=== PATIENT | female | born 1990 | race American Indian/Alaskan Native ===

== ENCOUNTER 2018-04-07 08:15 | Emergency (ER) | payer OTHER, MEDICAID ==
[2018-04-07] MEDS ORDERED: IBUPROFEN PO ONE (10:32)
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
--- NOTE | 2018-04-07 11:57 | XRay Report ---
AP PELVIS: HISTORY: pain. AP view of the pelvis shows normal pelvic contour and soft tissues. The hips are symmetric and within normal limits as are the sacroiliac joints. IMPRESSION: Normal pelvis.
--- NOTE | 2018-04-07 11:57 | XRay Report ---
CERVICAL SPINE, 3 views: History: Neck pain. Findings: The vertebral bodies, disk spaces, posterior elements and prevertebral soft tissues are unremarkable. The dens is intact. No acute fracture or malalignment is identified. Impression: 1. No evidence for acute injury to the cervical spine.
--- NOTE | 2018-04-07 11:58 | XRay Report ---
LUMBOSACRAL SPINE, 3 VIEWS: History: Back pain Findings: The vertebral bodies, disk spaces and posterior elements are intact. No compression deformity or malalignment. The SI joints are symmetric and unremarkable. Impression: 1. No evidence for acute injury to the lumbar spine.
--- NOTE | 2018-04-07 11:59 | XRay Report ---
ROUTINE CHEST, TWO VIEWS: HISTORY: chest pain. The trachea, heart, mediastinal contour, lung contreras and bony thorax are unremarkable. IMPRESSION: Unremarkable chest x-ray.
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
[2018-04-07 12:57] VITALS: BP 111/42
== END 2018-04-07 12:42 | disposition home or self-care (01) ==
LOC: ED 08:15
DX: M54.2 Cervicalgia (principal); M54.89 Other dorsalgia; M25.562 Pain in left knee; R07.89 Other chest pain; M25.551 Pain in right hip; M25.552 Pain in left hip; V89.2XXA Person injured in unspecified motor-vehicle accident, traffic, initial encounter; Y93.89 Activity, other specified; Y99.8 Other external cause status; Y92.410 Unspecified street and highway as the place of occurrence of the external cause
CPT/HCPCS: 71046; 72040; 72070; 72100; 72170; 99283

== ENCOUNTER 2019-10-18 02:23 | Outpatient (CLI) | payer MEDICAID ==
[2019-10-18 02:40] VITALS: BP 134/67
[2019-10-18] MEDS ORDERED: LACTATED RINGERS 1,000 ML IV ONE (02:48)
[2019-10-18] MEDS ORDERED: TERBUTALINE 1 MG/1 ML INJ SUB-Q ONE (03:31)
[2019-10-18] MEDS ORDERED: TERBUTALINE 1 MG/1 ML INJ ONE (03:34)
== END 2019-10-18 05:15 | disposition home or self-care (01) ==
LOC: TRG 02:23 → APU 02:50 → TRG 05:15
PROVIDERS: ATTEND Obstetrics & Gynecology
DX: O62.9 Abnormality of forces of labor, unspecified (principal); Z3A.39 39 weeks gestation of pregnancy
CPT/HCPCS: 59025; 96360; 96372; J3105; J7120; 96361

== ENCOUNTER 2019-10-20 16:47 | Outpatient (CLI) | payer MEDICAID ==
[2019-10-20] MEDS ORDERED: ACETAMINOPHEN W/CODEINE 300-30 MG TAB PO ONE (20:29)
[2019-10-20] MEDS ORDERED: hydrOXYzine PAMOATE 25 MG CAP PO ONE (20:29)
[2019-10-20 20:32] VITALS: BP 122/58
== END 2019-10-20 23:40 | disposition home or self-care (01) ==
LOC: TRG 16:47 → APU 18:45 → TRG 23:40
PROVIDERS: ATTEND Obstetrics & Gynecology
DX: O47.1 False labor at or after 37 completed weeks of gestation (principal); Z3A.39 39 weeks gestation of pregnancy
CPT/HCPCS: 59025; Q0177

== ENCOUNTER 2019-10-22 05:48 | Inpatient (IN) | payer MEDICAID ==
[2019-10-22] MEDS ORDERED: BICITRA ORAL LIQD 30ML PO ONE (06:58)
[2019-10-22] MEDS ORDERED: METOCLOPRAMIDE 10 MG/2 ML INJ IV ONE (06:58)
[2019-10-22] MEDS ORDERED: FAMOTIDINE 20 MG/2 ML INJ IV ONE (06:58)
[2019-10-22] MEDS ORDERED: OXYTOCIN 20 UNIT/1000ML DRIP 20 UNITS/1,000 ML BAG IV SCH ×2 (07:00→10:00)
[2019-10-22 07:58] LABS: Basophils % (Auto) 0.3 % (0.0-1.8); Hematocrit 33.3 % (30.3-42.9); Hemoglobin 11.8 gm/dl (10.1-14.3); Lymphocytes # (Auto) 1.2 K/mm3 (1.2-5.4); Lymphocytes % (Auto) 11.5 % (13.4-35.0); Mean Corpuscular HGB Conc 36 % (30-34); Mean Corpuscular Volume 89 fl (79-97); Monocytes # (Auto) 0.6 K/mm3 (0.0-0.8); Monocytes % (Auto) 5.5 % (0.0-7.3); Platelet Count 255 K/mm3 (140-440); Red Blood Count 3.75 M/mm3 (3.65-5.03); Red Cell Distribution Width 13.2 % (13.2-15.2)
[2019-10-22] MEDS: LACTATED RINGERS 1,000 ML IV SCH ×2 (07:59→09:31)
[2019-10-22] MEDS ORDERED: ceFAZolin/Water 2 GM/20 ML 2 GM/20 ML SYRINGE IV ONE (08:04)
[2019-10-22] MEDS ORDERED: fentaNYL 100 MCG/2 ML INJ IV PRN (08:11)
--- NOTE | 2019-10-22 09:16 | Anesthesia Day of Surgery ---
Anesthesia Day of Surgery - Day of Surgery Patient Examined: Yes Patient H&P Reviewed: Yes Patient is NPO: Yes Beta Blockers: No Cardiac Clearance: No Pulmonary Clearance: No Femi's Test: N/A
--- NOTE | 2019-10-22 09:21 | Anesthesia Consultation ---
Anesthesia Consult and Med Hx Date of service: 10/22/19 - Airway Anesthetic Teeth Evaluation: Good ROM Head & Neck: Adequate Mental/Hyoid Distance: Adequate Mallampati Class: Class III Intubation Access Assessment: Probably Good - Pulmonary Exam CTA: Yes - Cardiac Exam Cardiac Exam: RRR - Pre-Operative Health Status ASA Pre-Surgery Classification: ASA3 Proposed Anesthetic Plan: Spinal - Pre-Anesthesia Comment Pre-Anesthesia Comments: csection, no problem - Pulmonary Hx Smoking: No Hx Asthma: No Hx Respiratory Symptoms: No SOB: No COPD: No Home Oxygen Therapy: No Hx Pneumonia: No Hx Sleep Apnea: No - Cardiovascular System Hx Hypertension: No Hx Coronary Artery Disease: No Hx Heart Attack/AMI: No Hx Angina: No Hx Percutaneous Transluminal Coronary Angioplasty (PTCA): No Hx Cardia Arrhythmia: No Hx Pacemaker: No Hx Internal Defibrillator: No Hx Valvular Heart Disease: No Hx Heart Murmur: No Hx Peripheral Vascular Disease: No - Central Nervous System Hx Neuromuscular Disorder: No Hx Seizures: No CVA: No Hx Back Pain: No Hx Psychiatric Problems: No - Gastrointestinal Hx Ulcer: No Hx Gastroesophageal Reflux Disease: No - Endocrine Hx Renal Disease: No Hx End Stage Renal Disease: No Hx Cirrhosis: No Hx Liver Disease: No Hx Insulin Dependent Diabetes: No Hx Non-Insulin Dependent Diabetes: No Hx Thyroid Disease: No Hx Hypothyroidism: No Hx Hyperthyroidism: No - Hematic Hx Anemia: No Hx Sickle Cell Disease: Yes (TRAIT) - Other Systems Hx Alcohol Use: Yes (OCCASIONALLY) Hx Substance Use: No Hx Cancer: No Hx Obesity: Yes
[2019-10-22] MEDS ORDERED: HYDROmorphone 1 MG/1 ML INJ IV PRN (09:26)
[2019-10-22] MEDS ORDERED: ONDANSETRON 4 MG/2 ML INJ IV PRN (09:26)
[2019-10-22] MEDS ORDERED: NALOXONE 0.4 MG/1 ML INJ IV PRN ×2 (09:26→09:59)
[2019-10-22] MEDS ORDERED: DEXMEDETOMIDINE 200 MCG/2 ML VIAL IV ONE (09:35)
--- NOTE | 2019-10-22 09:55 | History and Physical Report ---
History of Present Illness Date of examination: 10/22/19 Date of admission: 10/22/19 05:49 Chief complaint: contractions History of present illness: 28y/o @ 39+4 weeks presents with regular contractions. The patient has a history of a prior delivery. She desires to attempt a trial of labor but has not had any further cervical change beyond 3cm. She denies leakage of fluid or vaginal bleeding Past History Past Medical History: no pertinent history Past Surgical History: section Social history: single - Obstetrical History Expected Date of Delivery: 10/25/19 Actual Gestation: 39 Week(s) 4 Day(s) : 2 Para: 1 Hx # Term Pregnancies: 1 Number of Pregnancies: 0 Spontaneous Abortions: 0 Induced : 0 Number of Living Children: 1 Medications and Allergies Allergies Allergy/AdvReac Type Severity Reaction Status Date / Time No Known Allergies Allergy Verified 10/18/19 02:52 Home Medications Medication Instructions Recorded Confirmed Last Taken Type HYDROcodone/APAP 5-325 [[place] 1 each PO Q6HR PRN #15 tablet 04/07/18 Unknown Rx 5/325] Ibuprofen [Motrin] 600 mg PO Q8H PRN #20 tablet 04/07/18 Unknown Rx methOCARBAMOL [Robaxin TAB] 500 mg PO Q6H PRN #15 tablet 04/07/18 Unknown Rx Active Meds: Active Medications Fentanyl (Sublimaze) 100 mcg IV Q2H PRN PRN Reason: Pain,Severe (7-10) LABOR PAIN Last Admin: 10/22/19 08:48 Dose: 100 mcg Documented by: Hydromorphone HCl (Dilaudid) 0.5 mg IV Q5M PRN PRN Reason: BREAK Stop: 10/24/19 09:25 Oxytocin/Sodium Chloride (Pitocin/Ns 20 Unit/1000ml Drip) 20 units in 1,000 mls @ 0 mls/hr IV TITR SMITHA Lactated Ringer's (Lactated Ringers) 1,000 mls @ 2,250 mls/hr IV PREOP SMITHA Stop: 10/23/19 07:27 Last Admin: 10/22/19 09:31 Dose: 2,250 mls/hr Documented by: Naloxone HCl (Naloxone) 0.2 mg IV Q2MIN PRN PRN Reason: Res Rate </= 8 or 02 SAT < 92% Ondansetron HCl (Zofran) 4 mg IV Q8H PRN PRN Reason: Nausea And Vomiting Sodium Chloride (Sodium Chloride Flush Syringe 10 Ml) 10 ml IV PRN NR Stop: 10/24/19 09:59 Review of Systems All systems: negative Genitourinary: contractions - Vital Signs Vital signs: Vital Signs Pulse Pulse Ox 87 100 10/22/19 06:11 10/22/19 06:11 Temp Pulse Resp BP Pulse Ox 98.6 F 70 18 122/65 99 10/22/19 06:16 10/22/19 07:41 10/22/19 08:48 10/22/19 06:16 10/22/19 07:41 - Physical Exam Breasts: Positive: deferred Cardiovascular: Regular rate Abdomen: Positive: normal appearance Results Result Diagrams: 10/22/19 07:40 Abnormal lab results 10/22/19 Range/Units 07:40 MCHC 36 H (30-34) % Lymph % (Auto) 11.5 L (13.4-35.0) % Seg Neutrophils % 82.7 H (40.0-70.0) % Seg Neutrophils # 8.9 H (1.8-7.7) K/mm3 All other labs normal. Assessment and Plan - Patient Problems (1) Previous section Current Visit: Yes Status: Acute Plan to address problem: will proceed with repeat delivery
[2019-10-22] MEDS ORDERED: IBUPROFEN 800 MG TAB PO PRN (09:59)
[2019-10-22] MEDS ORDERED: MORPHINE 4 MG/1 ML INJ IV PRN (09:59)
[2019-10-22] MEDS ORDERED: ACETAMINOPHEN 325 MG TAB PO PRN (09:59)
[2019-10-22] MEDS ORDERED: MAGNESIUM HYDROXIDE (MOM) ORAL LIQD UDC PO PRN (09:59)
[2019-10-22] MEDS ORDERED: LANOLIN/ZINC/DIMETHICONE (LANSINOH) 7 GM TP PRN (09:59)
[2019-10-22] MEDS ORDERED: WITCH HAZEL/ GLYCERIN PAD TP PRN (09:59)
[2019-10-22] MEDS ORDERED: ceFAZolin/STERILE WATER 2 GM/20 ML SYRINGE IV ONE (10:23)
[2019-10-22] MEDS ORDERED: SODIUM CHLORIDE 0.9% IRR 1,500 ML BOTTLE IR ONE (10:23)
[2019-10-22] MEDS ORDERED: WATER FOR IRRIG STERILE 1,500 ML BOTTLE IR ONE (10:23)
[2019-10-22] MEDS ORDERED: KETOROLAC 30 MG/1 ML INJ ONE (10:52)
[2019-10-22] MEDS ORDERED: PHENYLEPHRINE/NS 1,000 MCG/10 ML SYRINGE (OR USE) IV ONE (11:00)
[2019-10-22] MEDS ORDERED: BUPIVACAINE/PF (0.5%) 5 MG/1 ML 30 ML VIAL INFILTRATI ONE (11:11)
--- NOTE | 2019-10-22 11:30 | Procedure Note ---
OB Delivery Note - Delivery Date of Delivery: 10/22/19 Surgeon: ENDY STAPLES Estimated blood loss: other (800ml) - Section Preop diagnosis: repeat Postop diagnosis: same section procedure: section, repeat low transverse Disposition: PACU Complications: none - Infant A at 1 minute: 8 at 5 minutes: 9 Infant Gender: Female (Weight 7 pounds 6 ounces)
--- NOTE | 2019-10-22 11:31 | Operative Report ---
Operative Report Operative Report: Date of surgery: October 22, 2019 Preoperative diagnosis: at 39+4 weeks; prior delivery; active labor Postoperative diagnosis: Same as above Procedure: Repeat low transverse delivery Surgeon: Lana Quick M.D. Anesthesia: Regional Estimated blood loss: 800 mL Findings: Liveborn female infant with Apgars of 8 and 9 weight 7 pounds 6 ounces Indications: 28-year-old -0-0-1 at 39+4 weeks who presents with regular uterine contractions and a history of a prior delivery. Procedure: The patient was taken to the operating room and given regional anesthesia without complication. She was prepped and draped in a normal sterile fashion. A Pfannenstiel skin incision was made down to layer the fascia which was nicked in the midline extended laterally with the Bovie cautery. The superior aspect of the rectus fascia was grasped with Romel clamps x2 and the rectus muscles off sharply. This was done in inferior fashion as well. The rectus muscle midline and peritoneum entered bluntly. An Giovanni retractor was then inserted. A bladder blade was placed. The vesicouterine peritoneum was then entered sharply with Metzenbaum scissors. A bladder flap was created digitally. A low transverse uterine incision was then made and extended digitally. There was clear fluid upon entry into the uterine cavity. The head was delivered through the incision with fundal pressure. The cord was clamped and cut x2 and infant was passed off to pediatrics. The placenta was then manually extracted. The uterus was then exteriorized and cleared of clots and debris. The uterine incision was then closed in a running locked fashion with 0 Vicryl additional imbricating stitch was applied for 2 layer closure. The posterior cul-de-sac was then copiously irrigated. The uterus was replaced back into the abdomen and pelvis were the gutters were then irrigated. The Giovanni retractor was then removed. The peritoneum was then reapproximated with 3-0 Vicryl incorporating the rectus muscle. The fascia was then closed with 0 Vicryl in a running fashion. The skin was then reapproximated with 3-0 Monocryl on a Nick needle subcuticular fashion. Steri-Strips to place across the incision and a Crede procedures performed at the end of the surgery. A pressure dressing was applied to the incision. The surgery productive of a liveborn female with Apgars of 8 and 9 weight 7 pounds 6 ounces. The patient was taken to the recovery room in stable condition. All sponge laps and needle counts correct x2.
[2019-10-22] MEDS: D5W/LACTATED RINGERS 1,000 ML IV SCH ×2 (13:55→20:34)
[2019-10-22] MEDS: KETOROLAC 30 MG/1 ML INJ IV PRN (20:28)
--- NOTE | 2019-10-22 22:13 | Post Anesthesia Evaluation ---
- Post Anesthesia Evaluation Patient Participated: Yes Airway Patent: Yes Stable Respiratory Function: Yes Nausea/Vomiting: No Temp > 96.8F: Yes Pain Manageable: Yes Adequeate Hydration: Yes Anesthesia Complications: No Block Receding Appropriately: Yes Patient on Ventilator: No
[2019-10-22 23:48] LABS: Hematocrit 26.3 % (30.3-42.9); Hemoglobin 9.1 gm/dl (10.1-14.3)
[2019-10-23] MEDS: KETOROLAC 30 MG/1 ML INJ IV PRN (05:36)
[2019-10-23] MEDS ORDERED: DIPHtheria,PERTUSSIS(ACELL),TETANUS VACCINE/PF 0.5 ML VIAL IM ONE (06:00)
[2019-10-23] MEDS: oxyCODONE /ACETAMINOPHEN 5-325MG TAB PO PRN ×3 (08:39→22:37)
--- NOTE | 2019-10-23 09:58 | Progress Note ---
Assessment and Plan A: POD1 s/p rLTCS Acute anemia due to blood loss Vital signs stable P: Ferrous sulfate supplementation Routine care Subjective - Subjective Date of service: 10/23/19 Principal diagnosis: s/p rLTCS Interval history: POD1 s/p rLTCS Patient reports: appetite normal, voiding normally, pain well controlled, flatus, ambulating normally : doing well, nursing well Objective - Vital Signs Latest vital signs: Vital Signs Temp Pulse Resp BP BP Pulse Ox 10/23/19 08:31 98.2 F 82 20 126/75 100 10/23/19 05:34 98.0 F 81 20 120/63 96 10/23/19 00:00 98.2 F 83 20 113/72 99 10/22/19 20:15 98.0 F 98 H 20 109/63 99 10/22/19 15:57 98.4 F 65 20 118/52 100 10/22/19 13:45 98.6 F 59 L 20 117/59 10/22/19 13:15 69 22 116/55 100 10/22/19 12:45 97.6 F 67 19 114/61 100 10/22/19 12:30 75 19 109/55 100 10/22/19 12:15 74 18 101/49 100 10/22/19 12:10 75 19 102/49 100 10/22/19 12:05 75 25 H 107/53 99 10/22/19 12:00 97.6 F 73 17 105/51 99 Intake and Output 10/22/19 10/23/19 10/23/19 23:59 07:59 15:59 Intake Total 831.25 240 Output Total 400 1000 Balance 431.25 -760 Intake: IV 831.25 D5lr 1,000 ml @ 125 mls/ 831.25 hr IV DIRECT SMITHA Rx#: [id number] Oral 240 Output: Urine 400 1000 Indwelling Catheter 400 400 Void 600 Other: Total, Intake Amount 240 Total, Output Amount 400 600 # Voids Void 1 - Exam Lungs: Present: Normal air movement Abdomen: Present: soft. Absent: distention Uterus: Present: firm, fundal height below umbilicus. Absent: bogginess Extremities: Present: normal Incision: Present: dressed - Labs Labs: Abnormal lab results 10/22/19 Range/Units 22:33 Hgb 9.1 L (10.1-14.3) gm/dl Hct 26.3 L D (30.3-42.9) %
[2019-10-23] MEDS: FERROUS SULFATE 325 MG TAB PO SCH ×2 (10:18→22:37)
--- NOTE | 2019-10-24 08:16 | Progress Note ---
Assessment and Plan - Patient Problems (1) Previous section Current Visit: Yes Status: Acute Plan to address problem: Patient doing well Discharge home Subjective - Subjective Date of service: 10/24/19 Principal diagnosis: s/p rLTCS Interval history: Patient is without any significant complaints. She is tolerating regular diet and her pain is well controlled. Patient reports: appetite normal, voiding normally, pain well controlled : doing well Objective - Vital Signs Latest vital signs: Vital Signs Temp Pulse Resp BP Pulse Ox 10/24/19 00:35 98.2 F 98 H 18 128/79 93 10/23/19 16:41 98.5 F 83 20 138/78 99 10/23/19 08:31 98.2 F 82 20 126/75 100 Intake and Output 10/23/19 10/24/19 10/24/19 22:59 06:59 14:59 Intake Total 240 360 Output Total 500 Balance -260 360 Intake: Oral 240 Intake, Free Water 360 Output: Urine 500 Void 500 Other: Total, Intake Amount 240 Total, Output Amount 500 # Voids Void 2 - Exam Lungs: Present: Clear to auscultation Abdomen: Present: normal appearance, soft
--- NOTE | 2019-10-24 08:17 | Discharge Summary ---
Providers - Providers Date of Admission: 10/22/19 05:49 Date of discharge: 10/24/19 Attending physician: ENDY STAPLES Primary care physician: ENDY STAPLES Hospitalization Reason for admission: active labor Delivery: Procedure: section, repeat low transverse Incision: normal Discharge diagnosis: IUP at term delivered Hospital course: The patient was admitted with regular uterine contractions. She has a history of prior delivery. The patient was observed and had no further cervical change past 3 cm. She underwent a repeat delivery. Please see operative note for details of surgery. Postoperative course was uneventful. Condition at discharge: Good Disposition: DC-01 TO HOME OR SELFCARE - Discharge Diagnoses (1) Previous section Status: Acute Plan - Discharge Medications Prescriptions: Ibuprofen [Motrin] 800 mg PO Q8HR PRN #60 tablet PRN Reason: Pain , Severe (7-10) oxyCODONE /ACETAMINOPHEN [Percocet 5/325] 1 tab PO Q6HR PRN #30 tablet PRN Reason: Pain - Provider Discharge Summary Activity: no sex for 6 weeks, no heavy lifting 4 weeks, no strenuous exercise Diet: routine Instructions: routine Additional instructions: [] Smoking cessation referral if applicable(refer to patient education folder for contact #) [] Refer to [facility]'s [facility] Booklet Call your doctor immediately for: * Fever > 100.5 * Heavy vaginal bleeding ( >1 pad per hour) * Severe persistent headache * Shortness of breath * Reddened, hot, painful area to leg or breast * Drainage or odor from incision. * Keep incision clean and dry at all times and follow doctor's instructions regarding bathing/showering Schedule incision check in 2 weeks - Follow up plan Follow up: ENDY STAPLES MD [Primary Care Provider] - 7 Days Forms: [facility] Discharge Summary
[2019-10-24] MEDS: oxyCODONE /ACETAMINOPHEN 5-325MG TAB PO PRN (12:39)
[2019-10-24] MEDS: FERROUS SULFATE 325 MG TAB PO SCH (12:40)
[2019-10-24 14:17] VITALS: BP 134/80
== END 2019-10-24 14:19 | disposition home or self-care (01) | DRG 765 ==
LOC: TRG 05:48 → APU 05:49 → OB 13:29
PROVIDERS: ADMIT Obstetrics & Gynecology; ATTEND Obstetrics & Gynecology
PROC: 10D00Z1 Extraction of Products of Conception, Low, Open Approach (ICD-10-PCS; principal; 2019-10-22)
PROC: 3E0234Z Introduction of Serum, Toxoid and Vaccine into Muscle, Percutaneous Approach (ICD-10-PCS; 2019-10-23)
DX: O34.211 Maternal care for low transverse scar from previous cesarean delivery (principal); D62 Acute posthemorrhagic anemia; Z37.0 Single live birth; O99.214 Obesity complicating childbirth; E66.9 Obesity, unspecified; O90.81 Anemia of the puerperium; Z3A.39 39 weeks gestation of pregnancy; Z23 Encounter for immunization
CPT/HCPCS: 36415; 85014; 85018; 85025; 86850; 86900; 86901; 90715; G0378; A6250; J0690; J1885; J2370; J2590; J2765; J3010; J3490; J7120; J7121